=== PATIENT | female | born 1945 | race Caucasian/White ===

== ENCOUNTER 2017-09-22 13:00 | Day surgery (SDC) | END 2017-09-22 21:34 | disposition home or self-care (01) | DX: D17.5 Benign lipomatous neoplasm of intra-abdominal organs (principal); K64.8 Other hemorrhoids; E78.5 Hyperlipidemia, unspecified; I10 Essential (primary) hypertension; M19.90 Unspecified osteoarthritis, unspecified site; E78.00 Pure hypercholesterolemia, unspecified; Z88.0 Allergy status to penicillin; Z88.2 Allergy status to sulfonamides | CPT/HCPCS: 45380; 88305; J3010 ==